=== PATIENT | female | born 1970 | race Two or more races ===

== ENCOUNTER → 2023-08-22 14:30 | Outpatient (BNVA) | payer OTHER, SELFPAY | PROVIDERS: Visit Provider Physician Assistant | DX: S39.012A Strain of muscle, fascia and tendon of lower back, initial encounter (principal); X50.9XXA Other and unspecified overexertion or strenuous movements or postures, initial encounter; R03.0 Elevated blood-pressure reading, without diagnosis of hypertension | CPT/HCPCS: 99203 ==

== ENCOUNTER → 2023-08-27 14:57 | Outpatient (BNVA) | payer OTHER, SELFPAY | PROVIDERS: Visit Provider Physician Assistant Medical | DX: S39.012A Strain of muscle, fascia and tendon of lower back, initial encounter (principal); X58.XXXA Exposure to other specified factors, initial encounter; M46.1 Sacroiliitis, not elsewhere classified | CPT/HCPCS: 99213 ==

== ENCOUNTER 2023-09-10 11:00 | Outpatient (RCR) | payer OTHER, SELFPAY ==
--- NOTE | 2023-09-03 11:29 | MHC.PT.EP ---
[facility] [place] [facility] [place] [facility] [place] [facility] [address] Flor Velasco [address] [phone] F: [phone] F: [phone] F: [phone] F: [phone] Physical Therapy Plan of Care Date of Evaluation: 09/03/23 Date of Surgery: Diagnosis: This is a 53 yo male presenting to skilled PT with a script for spinal stenosis, lumbar region. Assessment: This is a 53 yo male presenting to skilled PT with a script for spinal stenosis, lumbar region. 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 The patient was 300 lbs and he stumbled to the L and she instinctively grabbed the gait belt and pulled to the R straining her low back right away, it felt like something shifted . Pain is improving however pain is still located R side low back and R groin. Standing or sitting longer than an hour and turning in bed usually increases her pain but movement makes her feel better. She is being followed by work connection and returns to them in about 3 weeks. She has been using heat and cold, stretches (KTC and BKFO) which have been helping. This is the first time she has injured her back. Reports no x-rays and no pain medication. Assessment reveals pain that ranges from up to a 2/10 at the worst. Patient demos decreased lumbar ROM and RLE ROM, strength of LE's, core and back, TTP at lumbar soft tissue and R hip, + tests for SIJ with R DANELLE, faizaos deep PSIS on R and is TTP at joint line, muscle tightness/spasm noted R lumbar region and impaired posture with forward head and rounded shoulders. Based on functional limitations, impaired QOL and pain tolerance patient is a good candidate for skilled PT 2x/wk for 4wks however will be coming 1x/wk as she prefers this. Frequency and Duration: The patient will be seen 2x/wk for 4wks Short Term Goals: Pt will demonstrate improved postural awareness and understanding of core engagement with supine and standing tasks without cues throughout session to improve overall back safety in 2 weeks. Pt will demonstrate centralization of sx in 2 weeks. Pt will continue to reinforce precautions, sitting, standing and ADL modifications with proper body mechanics in 2 wks. 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 Pt will demonstrate ability to bend and lift WNL min to no pain for return to work activities in full when medically cleared by MD. Demo WFL ROM of lumbar and BLE without pain in 4 wks. Improve pain to no more than 0/10 at the worst in 4 wks. Treatment Plan: Modalities to reduce pain, spasms and effusion. Manual therapy to restore motion and function. Therapeutic exercise to improve strength and flexibility. Neuromuscular re-education for posture and balance. Therapeutic activities to return to functional activities of daily living. Electronically signed by: Meka Simpson PT Please sign and return to therapist. Thank you for your referral.
--- NOTE | 2023-10-01 10:57 | MHC.PT.DC ---
[facility] [place] [facility] [place] [facility] [place] [facility] [address] Flor Velasco [address] [phone] F: [phone] F: [phone] F: [phone] F: [phone] Physical Therapy Discharge Report Diagnosis: This is a 53 yo male presenting to skilled PT with a script for spinal stenosis, lumbar region. Date of Surgery: Date of Evaluation: 09/03/23 Date of Discharge: 10/01/23 Treatments to Date: 2 Cancellations to Date: 0 No Shows to Date: 0 Discharge Status: Discharge Summary: Patient came to eval and 1 follow up. Proceeded to no show and cancel remaining visits. Patient has an HEP to continue on own. At the last tx session, patient had reported feeling better but still had residual soreness. DC to HEP due to compliance with appointments and facility policy. Electronically signed by: Meka Simpson Please sign and return to therapist. Thank you for your referral.
== END 2023-10-01 10:57 | disposition home or self-care (01) ==
LOC: HO.PTCHIC 11:00
PROVIDERS: Visit Provider Physician Assistant Medical
DX: S39.012D Strain of muscle, fascia and tendon of lower back, subsequent encounter (principal)
CPT/HCPCS: 97110; 97140; 97162

== ENCOUNTER → 2023-09-18 11:01 | Outpatient (BNVA) | payer OTHER, SELFPAY | PROVIDERS: Visit Provider Physician Assistant Medical | DX: M46.1 Sacroiliitis, not elsewhere classified (principal); M54.50 Low back pain, unspecified | CPT/HCPCS: 99213 ==

== ENCOUNTER → 2023-09-25 11:08 | Outpatient (BNVA) | payer OTHER, SELFPAY | PROVIDERS: Visit Provider Physician Assistant Medical | DX: M46.1 Sacroiliitis, not elsewhere classified (principal); M54.50 Low back pain, unspecified | CPT/HCPCS: 99213 ==